=== PATIENT | male | born 1995 ===

== ENCOUNTER 2018-11-14 23:25 | Emergency (ER) | payer OTHER ==
[~2018-11-14] VITALS: Ht 175.3 cm; Wt 124.7 kg
[~2018-11-14 23:25] MED LIST: FLOVENT 110MCG7.9 GM IH; GILTUSS COUGH-118 ML PO; INTESTINEX1 CA1 PO; PROVENTIL2.5 MG/3 M; SINGULAIR10 MG
[2018-11-15] MEDS ORDERED: TESSALON PERLE100 M1 PO (01:34)
[2018-11-15] MEDS ORDERED: AIRBORNE EFFER1 EACH PO (01:34)
[2018-11-15] MEDS ORDERED: OSEL75CA PO (01:34)
[2018-11-15] MEDS ORDERED: IBUPROFEN600 MG PO (01:34)
== END 2018-11-15 01:52 | disposition home or self-care (01) ==
LOC: ER 23:25
DX: J11.1 Influenza due to unidentified influenza virus with other respiratory manifestations (principal)

== ENCOUNTER → 2021-01-12 | Emergency (ER) | payer OTHER ==
[~2021-01-12] VITALS: Ht 175.3 cm; Wt 117.9 kg
[~2021-01-12] MED LIST changes: +AIRBORNE EFFER1 EACH PO; +CEPHALEXIN 500 MG; +IBUPROFEN600 MG PO; +OSEL75CA PO; +TESSALON PERLE100 M1 PO
== END | disposition home or self-care (01) ==
LOC: ER 06:05
DX: U07.1 COVID-19 (principal); J12.89 Other viral pneumonia; N39.0 Urinary tract infection, site not specified